=== PATIENT | female | born 1945 | race Caucasian/White ===

== ENCOUNTER 2019-06-26 10:52 | Outpatient (CLI) | payer MEDICARE, SELFPAY ==
--- NOTE | ~2019-06-26 | XR_ITS ---
XR chest 2V DATE: 06/26/2019 11:23 INDICATION: Urticaria and pruritus for one year TECHNIQUE: PA and lateral views COMPARISON: 10/02/2017 two-view chest FINDINGS: Normal heart size. Aortic calcification and tortuosity. No hilar or mediastinal enlargement . No pulmonary infiltrate or consolidation, pleural effusion or pulmonary vascular congestion or pneumo thorax is detected. Osteopenia. Degenerative spurring of the thoracic spine. Surgical clips overlie the left axillary region, consistent with prior left axillary node dissection. 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 IMPRESSION: No active cardiopulmonary disease Aortic atherosclerosis Reviewed, dictated and finalized at location B.
[2019-06-26 12:10] LABS: Erythrocyte Sedimentation Rate 28 mm/hr (0-20)
[2019-06-26 12:14] LABS: Basophils Absolute Auto 0.06 K/mm3 (0.00-0.10); Basophils Percent Auto 0.7 % (0.0-1.0); Eosinophils Percent Auto 3.4 % (1.0-6.0); Hematocrit 40.4 % (35.0-42.0); Hemoglobin 13.6 g/dL (11.7-13.8); Immature Granulocyte Absolute 0.05 K/mm3 (0.00-0.00); Immature Granulocyte Percent A 0.6 % (0.0-0.0); Lymphocytes Absolute Auto 3.23 K/mm3 (1.10-4.50); Lymphocytes Percent Auto 36.5 % (18.0-42.0); Mean Corpuscular HGB Conc 33.7 g/dL (32.0-36.0); Mean Corpuscular Hemoglobin 30.9 pg (27.0-31.0); Mean Corpuscular Volume 91.8 fL (78.0-102.0); Mean Platelet Volume 11.2 fl (9.2-11.8); Monocytes Absolute Auto 0.54 K/mm3 (0.10-0.90); Monocytes Percent Auto 6.1 % (2.0-11.0); Neutrophils Absolute Auto 4.7 K/mm3 (1.7-7.2); Neutrophils Percent Auto 52.7 % (50.0-70.0); Platelet Count Result 361 K/mm3 (150-420); Red Cell Distribution Width 13.1 % (11.6-14.4); White Blood Count 8.8 K/mm3 (4.8-10.8)
[2019-06-26 13:07] LABS: Alanine Aminotransferase 24 U/L (14-59); Albumin Level 3.9 g/dL (3.4-5.0); Alkaline Phosphatase 134 U/L (46-116); Anion Gap 15.1 mmol/L (7-16); Aspartate Amino Transferase 23 U/L (15-37); Bilirubin,Total 0.3 mg/dL (0.00-1.00); Blood Urea Nitrogen 20 mg/dL (7-18); Calcium 9.3 mg/dL (8.5-10.1); Carbon Dioxide 27 mmol/L (21-32); Chloride 104 mmol/L (98-108); Estimated Glomerular Filt Rate 45; Ferritin 215 ng/mL (8-252); Glucose 93 mg/dL (70-99); Iron 66 ug/dL (50-170); Osmolality Calculated 296 mOsm/kg (285-295); Percent Iron Saturation 24 % (12-57); Potassium 4.1 mmol/L (3.5-5.1); Sodium 142 mmol/L (136-145)
[2019-06-26 13:11] LABS: Thyroid Stimulating Hormone Reflex 1.85 u/IU/mL (0.36-3.74)
== END 2019-06-26 10:53 | disposition home or self-care (01) ==
PROVIDERS: PCP Internal Medicine; Visit Provider Specialist
DX: L29.9 Pruritus, unspecified (principal)
CPT/HCPCS: 36415; 71046; 80053; 82728; 83540; 83550; 84443; 85025; 85652

== ENCOUNTER 2022-02-15 11:05 | Outpatient (RCR) | payer MEDICARE, SELFPAY ==
--- NOTE | 2022-02-15 11:56 | PTOPEVAL1 ---
Assessment and note entered by Jrarett Carlos Evaluation Information Assessment Status Evaluation Diagnosis low back pain Onset 02/15/22 Subjective Information Pt. reports that she has had low back for multiple years. She reports that she has been doing exercise for years. She describes back pain on the right side of the low back. She reports that it does not radiate down the leg. She states that she recently received an injection of cortisone which helped to signficantly reduce her pain. She reports that pain is most notable with long periods of sitting, as when she does bingo. She reports that her goal for PT is to reduce her low back pain. Reported Pain Level Pain Score 0: Self Report Assessment PT Clinical Summary Pt. is a 76 year old female who enters the clinic with low back pain. she presents with generalized core and l.e. weakness, impaired gait, impaired trunk mobility and pain. Continued skilled PT is indicated in order to improve these areas to allow the pt. to achieve improved comfort with IADL performance. Plan of Care Interventions Electrical Stimulation,Gait Training,Hot Pack/Cold Pack,Manual Therapy,Neuro Re-education, Therapeutic Activities,Therapeutic Exercise,Self- Care/Home Management PT Services Indicated Yes Treatment Frequency and 2x/week x 10 visits Duration These treatments will address the objective and functional deficits as defined above. The patient will be advanced safely and appropriately in order for the patient to progress towards his/her prior level of function. Additional exercises will be introduced and as well as a comprehensive home exercise program upon discharge, if needed, ?to ensure carryover of functional gains achieved in the clinic. This treatment plan has been reviewed and agreement upon by the patient.
== END 2022-02-16 15:21 | disposition home or self-care (01) ==
LOC: CHSPT 11:05
PROVIDERS: Visit Provider Orthopaedic Surgery
DX: M54.50 Low back pain, unspecified (principal)
CPT/HCPCS: 97110; 97161